=== PATIENT | male | born 2000 | race Caucasian/White ===

== ENCOUNTER 2022-01-13 19:30 | Emergency (ER) | payer BC, SELFPAY ==
[2022-01-13 19:36] VITALS: BP 132/82; PULSE 101; RESP 20; TEMP 37.5; O2SAT 100
--- NOTE | 2022-01-13 20:05 | ED.WOUNDLAC ---
HPI - Wound/Laceration General Chief Complaint: Wound/Laceration Stated Complaint: Dog bite right wrist Time Seen by Provider: 01/13/22 19:50 Source: patient, family, RN notes reviewed and old records reviewed Mode of arrival: ambulatory Limitations: no limitations History of Present Illness HPI narrative: 21-YEAR-OLD MALE ACCOMPANIED BY PRESENTS TO [facility] WITH COMPLAINTS OF DOG BITES TO RIGHT WRIST FROM THE FAMILY DOG. PATIENT HAS 2 LINEAR BITES TO ANTERIOR WRIST AND ONE ON INNER WRIST AREA WITH SCRATCH ON INNER FOREARM. Patient reports that dogs vaccinations are up to date Onset (ago): hour(s) (1830 tonight) Location: other (right wrist and inner right forearm ) Extremity Location: Right: wrist Patient tetanus UTD: No Treatments prior to arrival: bandage Related Data Allergies Allergy/AdvReac Type Severity Reaction Status Date / Time No Known Allergies Allergy Uncoded 12/27/18 16:09 Review of Systems Review of Systems: CONSTITUTIONAL: Denies fever, chills, or sweats. CARDIOVASCULAR: Denies chest pain, palpitations, or edema. RESPIRATORY: Denies cough or dyspnea. GASTROINTESTINAL: Denies abdominal pain, nausea, vomiting SKIN: Reports liner lacerations X2 to anterior right wrist and one posterior right wrist from dog bite which occurred this evening at 1830 MUSCULOSKELETAL: Denies myalgia. NEUROLOGIC: Denies headache, numbness All systems reviewed & are unremarkable except as noted in HPI and below PMFSH Surgical History Surgical History (Updated 01/19/22 @ 15:02 by Yajaira Jacobo NP) History of elbow surgery ORIF Social History Social History (Updated 01/19/22 @ 15:00 by Yajaira Jacobo NP) Smoking status: Current every day smoker Tobacco type: e-cigarettes/vaping Alcohol intake: current Alcohol use details: social Substance use type: does not use Living arrangements: with family Gender identity (if verbalized by the patient): Male Comments At time of signature, agree with nursing past medical, surgical, social and family history. There is no relevant family history pertinent to the presenting complaint Exam Narrative: GENERAL: Well-appearing, well-nourished, and in no acute distress. HEAD: Normocephalic, atraumatic. EYES: PERRLA and EOMI. ENT: Nares clear, no rhinorrhea or epistaxis. Mucous membranes moist. NECK: Supple.no lymphadenopathy CHEST: Clear to auscultation. No respiratory distress. HEART: Regular rate and rhythm. No murmur heard. Normal peripheral pulses. ABDOMEN: Soft, nontender, nondistended, normal active bowel sounds. EXTREMITIES: Normal range of motion. No edema. SKIN: Warm, dry. 2 small linear bite rodriguez to anterior right wrist with no drainage note, one linear bite becky to inner wrist, scratch up inner arm NEURO: No focal deficits. Alert and oriented x3. Course Course Emergency Course: Patient is aware of diagnosis, understands and agrees to treatment plan. Anticipatory guidance given. Patient agrees to follow-up as directed and is aware of reasons to seek care at the emergency department. Portions of this record may have been created with voice recognition software Level of Care: Express Care Visit Vital Signs Vital signs: Vital Signs Temperature 37.5 C 01/13/22 19:36 Pulse Rate 101 H 01/13/22 19:36 Respiratory Rate 20 01/13/22 19:36 Blood Pressure 132/82 01/13/22 19:36 Pulse Oximetry 100 01/13/22 19:36 Oxygen Delivery Room Air 01/13/22 19:36 Temperature 37.5 C 01/13/22 19:36 Pulse Rate 101 H 01/13/22 19:36 Respiratory Rate 20 01/13/22 19:36 Blood Pressure 132/82 01/13/22 19:36 Pulse Oximetry 100 01/13/22 19:36 Oxygen Delivery Room Air 01/13/22 19:36 Reviewed MDM - Wound/Laceration MDM Narrative Medical decision making narrative: Tetanus Boostrix given in clinic today, no reaction noted Differential Diagnosis Differential diagnosis: Likely laceration, abrasion and other (dog bites X3 to right wris
[2022-01-13] MEDS: TETANUS,DIPHTHERIA,AC PERTUSSIS ADULT (0.5 ML) BOOSTRIX IM (20:22)
== END 2022-01-13 20:55 | disposition home or self-care (01) ==
PROVIDERS: Emergency Provider Registered Nurse
DX: S61.551A Open bite of right wrist, initial encounter (principal); W54.0XXA Bitten by dog, initial encounter; Z23 Encounter for immunization
CPT/HCPCS: 90471; 90715; 99213; G0463